=== PATIENT | male | born 1965 | race Caucasian/White ===

== ENCOUNTER 2018-01-24 15:44 | Emergency (ER) | payer OTHER ==
--- NOTE | 2018-01-24 16:15 | ER Document Report ---
ED Medical Screen (RME) - General Chief Complaint: Medical Clearance Stated Complaint: TOE PAIN Time Seen by Provider: 01/24/18 16:02 Notes: RAPID MEDICAL EVALUATION DISCLOSURE I have seen this patient as part of a Rapid Medical Evaluation and, if applicable, placed any initially appropriate orders. The patient will be seen and fully evaluated, including a full history and physical exam, by a provider ( in Main ED or Fast Track) when a room becomes available. 52-year-old male brought here by [facility] staff member for medical clearance of his right big toe ulceration. He is there under involuntary commitment papers for homicidal behavior. The PA there sent him over here for further evaluation of his toe ulcer. I am unable to obtain an accurate history or review of systems from this patient who is belligerent, verbally hostile, and yelling obscenities at this examiner such as "f*ck you b!tch". When I asked him how long the ulcer has been there, he refuses to answer the question and states "pass, next question". EXAM Unable to perform physical exam as patient is verbally hostile Body language such that I am unable to safely approach patient for further inspection of ulcer - Related Data Allergies/Adverse Reactions: No Known Allergies Allergy (Unverified 01/24/18 15:49) Physical Exam - Vital signs Vitals: Temp Pulse Resp BP Pulse Ox 98.0 F 92 18 148/92 H 99 01/24/18 16:00 01/24/18 16:00 01/24/18 16:00 01/24/18 16:00 01/24/18 16:00 Course - Vital Signs Vital signs: Temp Pulse Resp BP Pulse Ox 98.0 F 92 18 148/92 H 99 01/24/18 16:00 01/24/18 16:00 01/24/18 16:00 01/24/18 16:00 01/24/18 16:00
[2018-01-24 16:59] LABS: ABSOLUTE EOSINOPHILS # (AUTO) 0.2 10^3/uL (0.0-0.6); ABSOLUTE LYMPHOCYTES (AUTO) 2.3 10^3/uL (0.5-4.7); BASOPHILS % (AUTO) 0.5 % (0-2); EOSINOPHILS % (AUTO) 1.7 % (0-6); LYMPHOCYTES % (AUTO) 21.9 % (13-45); MEAN CORPUSCULAR HEMOGLOBIN 29.3 pg (27.0-33.4); MEAN CORPUSCULAR VOLUME 89 fl (80-97); MONOCYTES % (AUTO) 9.4 % (3-13); PLATELET COUNT 193 10^3/uL (150-450); RED CELL DISTRIBUTION WIDTH 15.7 % (11.5-14.0); SEGMENTED NEUTROPHILS % (AUTO) 66.5 % (42-78); TOTAL CELLS COUNTED % (AUTO) 100 %; WHITE BLOOD COUNT 10.5 10^3/uL (4.0-10.5)
[2018-01-24 17:02] LABS: HEMATOCRIT 57.7 % (37.9-51.0)
[2018-01-24 17:11] LABS: ANION GAP 14 (5-19); BLOOD UREA NITROGEN 27 mg/dL (7-20); CALCIUM 10.4 mg/dL (8.4-10.2); CARBON DIOXIDE 27 mmol/L (22-30); CHLORIDE 105 mmol/L (98-107); GLUCOSE 158 mg/dL (75-110); SODIUM 146.3 mmol/L (137-145)
--- NOTE | 2018-01-24 17:27 | RADIOLOGY REPORT (SQ) ---
EXAM DESCRIPTION: TOE RIGHT COMPLETED DATE/TIME: 01/24/2018 4:45 pm REASON FOR STUDY: R big toe ulcer; eval osteomyelitis COMPARISON: None. NUMBER OF VIEWS: Three views. TECHNIQUE: AP, lateral, and oblique images acquired of the right first toe. LIMITATIONS: None. FINDINGS: MINERALIZATION: Normal. BONES: No acute fracture or dislocation. No cortical erosions or lytic areas are identified to sugge st bony involvement by osteomyelitis. . JOINTS: No effusions. SOFT TISSUES: No soft tissue swelling. No foreign body. OTHER: Hallux valgus is identified. IMPRESSION: No plain film evidence for bony involvement by osteomyelitis. Other findings as noted cherrie gomez TECHNICAL DOCUMENTATION: JOB ID: [id number] [employer]- All Rights Reserved Reading location - IP/workstation name: [email or web address]
--- NOTE | 2018-01-24 18:08 | ER Document Report ---
ED General - General Chief Complaint: Medical Clearance Stated Complaint: TOE PAIN Time Seen by Provider: 01/24/18 16:02 Mode of Arrival: Ambulatory Information source: Patient Notes: Patient is a 52-year-old male who presents to the ER today from [facility] to have his right great toe looked at as he has a diabetic foot ulcer that has been present for approximately 9 months. Patient states that he does see wound care for it and that they debrided every once in a while. Patient denies any drainage from it states that it has "been clean." He denies any fevers or chills or redness to the area. Patient is only here because the provider at [facility] took a look at it and wanted it evaluated in the emergency department because they had never seen it before. He denies any feeling to the area. - Related Data Allergies/Adverse Reactions: No Known Allergies Allergy (Unverified 01/24/18 15:49) Past Medical History - General Information source: Patient - Social History Smoking Status: Current Every Day Smoker Chew tobacco use (# tins/day): No Frequency of alcohol use: None Drug Abuse: None Family History: Reviewed & Not Pertinent Patient has suicidal ideation: No Patient has homicidal ideation: Yes - going to [facility] for medical clearance Endocrine Medical History: Reports: Hx Diabetes Mellitus Type 2 Renal/ Medical History: Denies: Hx Peritoneal Dialysis Psychiatric Medical History: Reports: Hx Bipolar Disorder Review of Systems - Review of Systems Constitutional: No symptoms reported EENT: No symptoms reported Cardiovascular: No symptoms reported Respiratory: No symptoms reported Gastrointestinal: No symptoms reported Genitourinary: No symptoms reported Male Genitourinary: No symptoms reported Musculoskeletal: No symptoms reported Skin: See HPI Hematologic/Lymphatic: No symptoms reported Neurological/Psychological: No symptoms reported Physical Exam - Vital signs Vitals: Temp Pulse Resp BP Pulse Ox 98.0 F 92 18 148/92 H 99 01/24/18 16:00 01/24/18 16:00 01/24/18 16:00 01/24/18 16:00 01/24/18 16:00 - Notes Notes: PHYSICAL EXAMINATION: GENERAL: Well-appearing and in no acute distress. HEAD: Atraumatic, normocephalic. EYES: Pupils equal round and reactive to light, extraocular movements intact, sclera anicteric, conjunctiva are normal. NECK: Normal range of motion, supple without lymphadenopathy LUNGS: CTAB and equal. No wheezes rales or rhonchi. HEART: Regular rate and rhythm without murmurs EXTREMITIES: Normal range of motion, no pitting edema. No cyanosis. NEUROLOGICAL: Cranial nerves grossly intact. Normal sensory/motor exams. PSYCH: Normal mood, normal affect. SKIN: Warm, Dry, normal turgor, chronic appearing 1-1/2 cm ulcer to the plantar surface of the right great toe, no drainage, no erythema, white around but no fluctuance or induration, nontender Course - Re-evaluation Re-evalutation: 01/24/18 18:32 Lab work is unremarkable today, ulcer actually appears to be noninfected and chronic in nature. There is nothing to be done here in the emergency department today. Patient to follow-up with his wound care doctor. - Vital Signs Vital signs: Temp Pulse Resp BP Pulse Ox 98.0 F 85 16 140/90 H 100 01/24/18 18:22 01/24/18 18:22 01/24/18 18:22 01/24/18 18:22 01/24/18 18:22 - Laboratory Result Diagrams: 01/24/18 16:23 01/24/18 16:23 Laboratory results interpreted by me: 01/24/18 01/24/18 16:23 16:23 RBC 6.50 H Hgb 19.0 H Hct 57.7 H RDW 15.7 H Sodium 146.3 H BUN 27 H Creatinine 1.54 H Est GFR ( Amer) 57 L Est GFR (Non-Af Amer) 47 L Glucose 158 H Calcium 10.4 H Discharge - Discharge Clinical Impression: Chronic diabetic ulcer of right foot determined by examination Condition: Stable Disposition: HOME, SELF-CARE Additional Instructions: Return immediately for any new or worsening symptoms. Follow up with primary care provider, call tomorrow to make followup appointment.
[2018-01-24 18:23] VITALS: BP 140/90
== END 2018-01-24 18:23 | disposition home or self-care (01) ==
LOC: ER 15:44
DX: E11.621 Type 2 diabetes mellitus with foot ulcer (principal); L97.519 Non-pressure chronic ulcer of other part of right foot with unspecified severity; M79.674 Pain in right toe(s); F17.200 Nicotine dependence, unspecified, uncomplicated
CPT/HCPCS: 36415; 80048; 85025; 99283